=== PATIENT | female | born 1940 | race Caucasian/White ===

== ENCOUNTER 2018-08-18 07:51 | Emergency (ER) | payer OTHER ==
[~2018-08-18] VITALS: Ht 152.4 cm; Wt 74.8 kg
[~2018-08-18 07:51] MED LIST: AVALIDE 150-12.1 TA1 PO; CARDIZEM60 MG PO; METFORMIN HCL500 MG PO; SEROQUEL50 MG PO; ZOCOR20 MG PO
== END 2018-08-18 09:18 | disposition home or self-care (01) ==
LOC: ER 07:51
DX: R10.84 Generalized abdominal pain (principal)

== ENCOUNTER 2020-07-20 09:42 | Outpatient (CLI) | payer OTHER | END 2020-07-20 09:46 | disposition home or self-care (01) | LOC: SONOGRAMA 09:42 | PROVIDERS: ATTEND Pathology Anatomic Pathology & Clinical Pathology | DX: E04.1 Nontoxic single thyroid nodule (principal) ==

== ENCOUNTER 2022-06-23 17:09 | Inpatient (IN) | payer OTHER | END 2022-07-06 01:22 | disposition home or self-care (01) | DRG 638 | LOC: ER 17:09 → SEC-K 22:35 → SURG 06-24 13:27 → MEDJ 06-27 14:19 → SURG 06-27 14:33 → MEDJ 06-27 15:10 | PROVIDERS: ADMIT Internal Medicine | PROC: BL3 Imaging, Connective Tissue, Magnetic Resonance Imaging (MRI) (ICD-10-PCS; principal; 2022-06-24) | DX: E11.628 Type 2 diabetes mellitus with other skin complications (principal); L03.113 Cellulitis of right upper limb; B96.89 Other specified bacterial agents as the cause of diseases classified elsewhere; Z79.4 Long term (current) use of insulin; Z20.822 Contact with and (suspected) exposure to COVID-19 ==